=== PATIENT | female | born 1955 | race Caucasian/White ===

== ENCOUNTER 2021-10-07 12:28 | Outpatient (CLI) | payer MEDICARE, SELFPAY ==
--- NOTE | ~2021-10-07 | XR_ITS ---
XR lumbar spine 2-3V DATE: 10/07/2021 13:01 INDICATION: Low back pain TECHNIQUE: AP, lateral, coned lateral lumbosacral views COMPARISON: None FINDINGS: Status post posterior surgical and interbody spinal fusion at L4-5. Pedicle screws and rods appear intact, without evidence of fracture or displacement. Approximately 9 mm grade 1 anterolisthesis at L4-5. Osteopenia. There is mild loss of height of L2 vertebral body with cupping of the superior vertebral endplate, co nsistent with compression fracture of uncertain age. No other fracture is evident. Included lower tho racic and lumbar pedicles appear intact. Moderate degenerative disc disease at L1-2. Mild degenerative disc disease at L2-3, L3-4. L5-S1 inter space is well preserved. The sacroiliac joints are intact. IMPRESSION: Osteopenia L2 compression fracture, uncertain age Status post posterior and interbody spinal fusion at L4-5 9 mm anterolisthesis grade 1 anterolisthesis at L4-5 Multilevel degenerative disc disease, sparing L5-S1 Reviewed, dictated and finalized at location A.
--- NOTE | ~2021-10-07 | XR_ITS ---
XR_CERV2-3V_CR DATE: 10/07/2021 13:01 INDICATION: Neck pain. No known injury. TECHNIQUE: AP, open-mouth, lateral views COMPARISON: None FINDINGS: C1 and C2 are normally aligned and the odontoid process is intact. 1.7 mm anterolisthesis at C3-4. 1.3 mm retrolisthesis at C5-6. 1.3 mm anterolisthesis at C6-7. There is moderate degenerative disc disease of the cervical spine, most prominent at C4-5. No fracture or dislocation, locked facet or prevertebral soft tissue swelling is evident. There is degenerative change at the apophyseal joints throughout the cervical spine and at the uncove rtebral joints in the mid and lower cervical spine. IMPRESSION: Cervical spondylosis Reviewed, dictated and finalized at Location A. Reviewed, dictated and finalized at location A. IMPRESSION: Cervical spondylosis
== END 2021-10-07 12:29 | disposition home or self-care (01) ==
LOC: CHSIMG 12:38
PROVIDERS: PCP Internal Medicine; Visit Provider Internal Medicine
DX: M54.2 Cervicalgia (principal); M54.50 Low back pain, unspecified
CPT/HCPCS: 72040; 72100

== ENCOUNTER 2021-10-25 08:24 | Outpatient (CLI) | payer MEDICARE, SELFPAY ==
--- NOTE | ~2021-10-25 | MR_ITS ---
EXAMINATION: MR hip RT wo con DATE: 10/25/2021 09:53 INDICATION: Burning pain at the right hip and groin. TECHNIQUE: Magnetic resonance imaging (MRI) of the right hip was performed without intravenous contr ast. Sequences included full-field axial PD-weighted FS FSE and T1-weighted FSE, coronal of the pelvi s with PD-weighted FS FSE, small field of view of the right hip with axial PD-weighted FS FSE, sagit romelia PD-weighted FS FSE and coronal PD weighted FS FSE. Additional radial T1-weighted FGR oriented ort hogonal to the acetabular rim were obtained for evaluation of the labrum. COMPARISON: None FINDINGS: Bones/labrum/cartilage: Alignment is normal. No fracture, avascular necrosis or pathologic marrow replacing process. There i s a tear of the anterosuperior to anterior right acetabular labrum. Mild right hip osteoarthritis wit h partial thickness cartilage loss resulting nonuniform joint space narrowing with anterosuperior pre dominance with subarticular edema-like signal change at the anterosuperior right acetabulum. Hypertro phic marginal osteophytes about the right femoral head. Metallic magnetic field artifact associated w ith bilateral vertical lamar and pedicle screw fixation for posterior spinal fusion at L4-L5. Fluid: Symmetric physiologic amount of fluid within both hip joints. Soft tissues: Fluid collection at the left greater trochanter including over the torn lateral facet footplate of th e left gluteus medius tendon with retraction of the myotendinous junction position approximately 4 to 5 cm proximal to the footplate. More posteriorly there is tendinopathy without discrete tear at the superoposterior facet footplate of the tendon. Additional partial tear at the anterior facet footplat e of the left gluteus minimus minimus tendon with asymmetric moderate fatty atrophy of the left glute us minimus muscle belly. There is compensatory asymmetric hypertrophy of the left tensor fascia christiane muscle suggesting the left gluteal tendon tears are chronic. On the right there is tendinopathy witho ut discrete tear at the trochanteric insertions of both the right gluteus medius medius and minimus t endons. The bilateral iliopsoas tendons are normal. Relatively symmetric mild ischial bursitis and mi ld tendinopathy without discrete tears at the bilateral ischial tuberosity origins of the proximal dover mstring tendons. The uterus is not identified and has likely been surgically resected. Limited eval uation of visceral organs of the pelvis is otherwise unremarkable. No pathologically enlarged pelvic /inguinal lymphadenopathy. IMPRESSION: 1. Mild right hip osteoarthritis with anterior to anterosuperior labral tear and high-grade chondral malacia the anterosuperior acetabulum. 2. Tendinopathy at the bilateral gluteus medius medius and minimus tendons with partial tears at the anterior and lateral facet footplates of the left gluteus medius minimus and medius tendons. 3. Relatively symmetric mild bilateral ischial bursitis with mild tendinopathy without discrete tear at the bilateral proximal hamstring tendons. Reviewed, dictated and finalized at location A. IMPRESSION: 1. Mild right hip osteoarthritis with anterior to anterosuperior labral tear an d high-grade chondral malacia the anterosuperior acetabulum. 2. Tendinopathy at the bilateral gluteus medius medius and minimus tendons with partial tears at the anterior and lateral facet footplates of the left gluteus medius minimus and medius tendons. 3. Relatively symmetric mild bilateral ischial bursitis with mild tendinopathy without discrete tear at the bilateral proximal hamstring tendons.
[2021-10-25 08:45] LABS: Add Urine Microscopic? YES; Appearance Urine Clear (Clear); Basophils Absolute Auto 0.05 K/mm3 (0.00-0.10); Basophils Percent Auto 0.9 % (0.0-1.0); Bilirubin Urine Negative (Negative); Blood Urine Negative (Negative); Color Urine Light Yellow (Yellow); Eosinophils Absolute Auto 0.07 K/mm3 (0.02-0.50); Eosinophils Percent Auto 1.2 % (1.0-6.0); Glucose Urine UA Negative (Negative); Hematocrit 40.3 % (35.0-42.0); Hemoglobin 13.3 g/dL (11.7-13.8); Immature Granulocyte Absolute 0.05 K/mm3 (0.00-0.00); Immature Granulocyte Percent A 0.9 % (0.0-0.0); Ketones Urine Negative (Negative); Leukocyte Esterase Ur Trace (Negative); Lymphocytes Absolute Auto 2.33 K/mm3 (1.10-4.50); Lymphocytes Percent Auto 39.7 % (18.0-42.0); Mean Corpuscular Hemoglobin 30.9 pg (27.0-31.0); Mean Corpuscular Volume 93.7 fL (78.0-102.0); Mean Platelet Volume 9.1 fl (9.2-11.8); Monocytes Absolute Auto 0.55 K/mm3 (0.10-0.90); Monocytes Percent Auto 9.4 % (2.0-11.0); Neutrophils Absolute Auto 2.8 K/mm3 (1.7-7.2); Neutrophils Percent Auto 47.9 % (50.0-70.0); Nitrate Urine Negative (Negative); Platelet Count Result 382 K/mm3 (150-420); Protein Urine Negative (Negative); Red Cell Distribution Width 13.8 % (11.6-14.4); Specific Grav Ur 1.015 (1.010-1.020); Urobilinogen Urine 0.2 mg/dL (0.2-1.0); White Blood Count 5.9 K/mm3 (4.8-10.8)
[2021-10-25 08:50] LABS: Squamous Epithelial Cell Urine Few /hpf (Few)
[2021-10-25 08:51] LABS: Bacteria Urine Trace /hpf
[2021-10-25 09:17] LABS: Alanine Aminotransferase 22 U/L (14-59); Albumin Level 3.9 g/dL (3.4-5.0); Alkaline Phosphatase 116 U/L (46-116); Anion Gap 7 mmol/L (8-16); Aspartate Amino Transferase 12 U/L (15-37); Bilirubin,Total 0.3 mg/dL (0.00-1.00); Blood Urea Nitrogen 16 mg/dL (7-18); Calcium 8.9 mg/dL (8.5-10.1); Carbon Dioxide 29 mmol/L (21-32); Chloride 105 mmol/L (98-108); Cholesterol 167 mg/dL (0-200); Estimated Glomerular Filt Rate 50; Glucose 93 mg/dL (70-99); HDL Direct 53 mg/dL (40-60); LDL Cholesterol Calculated 102 mg/dL (<130); Osmolality Calculated 293 mOsm/kg (285-295); Potassium 4.2 mmol/L (3.5-5.1); Sodium 141 mmol/L (136-145); Thyroid Stimulating Hormone 1.42 uIU/mL (0.36-3.74); Total Protein 6.9 g/dL (6.4-8.2); Triglycerides 59 mg/dL (0-150)
[2021-10-28 09:39] LABS: Parathyroid Intact 44 pg/mL (14-64)
[2021-10-29 11:19] LABS: Vitamin D 1,25 (OH)2 Total 45 pg/mL (18-72); Vitamin D2 1,25 (OH)2 <8 pg/mL; Vitamin D3 1,25 (OH)2 45 pg/mL
[2021-10-31 07:30] LABS: Vitamin D 25 Hydroxy 33 ng/mL (30-100)
== END 2021-10-25 08:25 | disposition home or self-care (01) ==
PROVIDERS: PCP Internal Medicine; Visit Provider Internal Medicine
DX: M54.2 Cervicalgia (principal); M54.50 Low back pain, unspecified; E55.9 Vitamin D deficiency, unspecified; Z00.00 Encounter for general adult medical examination without abnormal findings; M25.551 Pain in right hip; Z13.6 Encounter for screening for cardiovascular disorders; R53.83 Other fatigue
CPT/HCPCS: 36415; 73721; 80053; 80061; 81001; 82306; 82652; 83970; 84443; 85025

== ENCOUNTER 2022-02-12 11:58 | Outpatient (CLI) | payer MEDICARE, SELFPAY ==
--- NOTE | ~2022-02-12 | MM_ITS ---
EXAMINATION: MM screening benson BI w dylon HISTORY: Screening TECHNIQUE: Craniocaudal and mediolateral oblique 3-D tomosynthesis images were obtained and synthetic 2-D images were generated. CAD analysis was submitted and interpreted. COMPARISON: No prior mammogram is available for comparison at this institution. BREAST PARENCHYMAL COMPOSITION: Breast composed of scattered areas of fibroglandular density FINDINGS: There is no evidence of suspicious mass, calcification, or architectural distortion to sugg est malignancy in either breast. There has been no suspicious interval change. IMPRESSION: 1. No mammographic evidence of malignancy. 2. Recommend routine screening mammography in one year. BI-RADS Category 1: Negative Reviewed, dictated and finalized at location A.
--- NOTE | ~2022-02-12 | DEXA_ITS ---
Bone Density Report Name: KURTIS VIEIRA Age: 66 Sex: Female Ethnicity: White Date of : 1955 Indication: postmenopausal; screening for osteoporosis; parental hip fracture; height loss; prior fracture; hysterectomy; Referring Provider: ARMEN NORTON Study: Bone densitometry was performed. Exam Date: February 12, 2022 Accession number: [id number] Bone Density: Region BMD T-score Z-score Classification Femoral Neck (Left) 0.610 -2.2 -0.6 Osteopenia Total Hip (Left) 0.839 -0.8 0.4 Normal Femoral Neck (Right) 0.653 -1.8 -0.2 Osteopenia Total Hip (Right) 0.807 -1.1 0.2 Osteopenia Femoral Neck Mean 0.632 -2.0 -0.4 Osteopenia Total Hip Mean 0.823 -1.0 0.3 Normal World Health Organization criteria for BMD impression classify patients as: Normal (T-score at or above -1.0), Osteopenia (T-score between -1.0 and -2.5), or Osteoporosis (T-score at or below -2.5). 10-year Fracture Risk: FRAX not reported because: Prior hip or vertebral fracture Clinical Information Provided by Patient: Have had a previous hip or vertebral fracture Has had a low trauma fracture Parent has had a hip fracture Has used the following medications: Vitamin D, Calcium Has the following medical conditions: Hysterectomy Patient maximum height was 66 Menopause Age: 37 No regular weight bearing exercise Drinks caffeinated beverages Onset of menses at age 9 Number of children 3 Impression: The patient has low bone mass, based on the Left Femoral Neck T-score. The patient has risk factors, including: parental hip fracture, previous fracture. Discussion: INCREASED RISK OF FRACTURE DUE TO HISTORY OF FRACTURE. The patient's previous fracture puts the patient at high risk of a future fracture. In untreated patients, the risk of osteoporotic fracture increases approximately two-fold for each 1.0 SD decrease in T-score. Low bone density is not the only risk factor for fracture; also consider factors such as patient's age, frailty or poor health, risk of falling, risk of injury, previous osteoporotic fracture, family history of osteoporosis, cigarette smoking, low body weight, etc. Not everyone with a low trauma fracture has osteoporosis; osteomalacia and other metabolic bone disorders should also be considered. Patients who have osteoporosis should be evaluated for specific diseases and conditions (secondary causes) that may cause or contribute to bone loss and fracture risk. National Osteoporosis Foundation (NOF) recommends pharmacologic intervention for patients with a prior hip or vertebral fracture regardless of BMD T-score. The patient should follow a healthful lifestyle (good nutrition with adequate calcium and vitamin D, and appropriate weight-bearing exercise). Follow-Up: Consider a repeat BMD and Vertebral Fracture Assessme
== END 2022-02-12 11:59 | disposition home or self-care (01) ==
PROVIDERS: PCP Internal Medicine; Visit Provider Internal Medicine
DX: M81.0 Age-related osteoporosis without current pathological fracture (principal); Z12.31 Encounter for screening mammogram for malignant neoplasm of breast
CPT/HCPCS: 77063; 77067; 77080

== ENCOUNTER 2022-06-12 12:06 | Outpatient (CLI) | payer MEDICARE, SELFPAY ==
--- NOTE | 2022-06-12 13:16 | ECG_ITS ---
Measurements Intervals [place] Rate: 81 P: 50 SD: 125 QRS: 7 QRSD: 72 T: 54 QT: 375 QTc: 438 Interpretive Statements SINUS RHYTHM WITH OCCASIONAL VENTRICULAR PREMATURE COMPLEXES LOW QRS VOLTAGE IN PRECORDIAL LEADS [QRS DEFLECTION < 1.0 mV IN CHEST LEADS] NO PREVIOUS ECG AVAILABLE FOR COMPARISON Electronically Signed On 06-13-2022 8:15:36 GAMMA OPERATOR by Effie Rogers M.D.
[2022-06-12 13:51] LABS: Basophils Absolute Auto 0.1 K/mm3 (0.0-0.1); Eosinophils Percent Auto 0.6 % (0-4.4); Hematocrit 40.1 % (37.0-47.0); Hemoglobin 13.3 g/dL (12.0-15.0); Immature Granulocyte Absolute 0.01 K/mm3 (0.00-0.031); Immature Granulocyte Percent A 0.2 % (0-0.5); Lymphocytes Absolute Auto 1.85 K/mm3 (0.9-3.2); Lymphocytes Percent Auto 36.8 % (18.3-44.2); Mean Corpuscular HGB Conc 33.2 g/dl (32-36); Mean Corpuscular Hemoglobin 31.8 pg (26-34); Mean Corpuscular Volume 95.9 fl (80-100); Mean Platelet Volume 9.5 fl (7.4-10.4); Monocytes Absolute Auto 0.4 K/mm3 (0.1-0.6); Monocytes Percent Auto 7.6 % (2.6-8.5); Neutrophils Absolute Auto 2.7 K/mm3 (1.3-6.7); Neutrophils Percent Auto 53.8 % (45.5-73.1); Platelet Count Result 312 k/mm3 (150-375); Red Blood Count 4.18 M/mm3 (4.2-5.4)
[2022-06-12 14:02] LABS: Hemoglobin A1C 5.1 % (<5.7)
[2022-06-12 14:08] LABS: Albumin Level 4.6 g/dL (3.5-5.1); Anion Gap 6 mmol/L (8-16); Blood Urea Nitrogen 23 mg/dL (7-17); Carbon Dioxide 30 mmol/L (22-30); Chloride 103 mmol/L (98-107); Estimated Glomerular Filt Rate > 60; Glucose 90 mg/dL (65-110); Potassium 4.3 mmol/L (3.4-5.0); Sodium 139 mmol/L (137-145)
[2022-06-12 15:43] LABS: Urine Cotinine NEGATIVE
== END 2022-06-12 12:07 | disposition home or self-care (01) ==
LOC: ANHSURGERY 12:10
PROVIDERS: PCP Internal Medicine; Visit Provider Orthopaedic Surgery
DX: M16.11 Unilateral primary osteoarthritis, right hip (principal); Z01.818 Encounter for other preprocedural examination
CPT/HCPCS: 80048; 80307; 82040; 83036; 85025; 87081; 87147; 87181; 87186; 93005

== ENCOUNTER 2022-06-18 13:40 | Outpatient (CLI) | payer MEDICARE, SELFPAY ==
[2022-06-18 14:00] LABS: Hematocrit 37.9 % (37.0-47.0); Hemoglobin 12.8 g/dL (12.0-15.0); Mean Corpuscular HGB Conc 33.8 g/dl (32-36); Mean Corpuscular Hemoglobin 32.2 pg (26-34); Mean Corpuscular Volume 95.2 fl (80-100); Mean Platelet Volume 9.6 fl (7.4-10.4); Platelet Count Result 287 k/mm3 (150-375); Red Blood Count 3.98 M/mm3 (4.2-5.4); White Blood Count 4.6 K/mm3 (4.5-10.0)
[2022-06-18 16:38] LABS: Prothrombin Time 12.5 Seconds (11.1-14.7)
[2022-06-18 16:39] LABS: Partial Thromboplastin Time 30.8 SECONDS (22.3-36.8)
== END 2022-06-18 13:41 | disposition home or self-care (01) ==
LOC: ANHLAB 13:41
PROVIDERS: PCP Internal Medicine; Visit Provider Internal Medicine Hematology & Oncology
DX: D69.9 Hemorrhagic condition, unspecified (principal)
CPT/HCPCS: 36415; 85027; 85240; 85245; 85246; 85247; 85610; 85730

== ENCOUNTER 2022-06-29 01:06 | Day surgery (SDC) | payer MEDICARE, SELFPAY ==
--- NOTE | 2022-06-12 11:37 | PC.NURSE ---
PRE-OP INSTRUCTIONS, PLEASE READ CAREFULLY Report to the Outpatient Waiting Room, entrance under the green pavilion located off [address], at time _0600_ on date _06/29/22_. Planned Procedure Time: _0730_. PACK A SMALL OVERNIGHT BAG AND LEAVE IN THE CAR ALONG WITH YOUR WALKER Time changes happen often and if your time is changed the preop area will call you the afternoon before. - You and your visitor will be asked to self-screen and do not enter if you have any COVID symptoms. - Only one visitor is requested with a max of two and NO children visitors are allowed at this time. - The patient visitor may be requested to leave or wait in car when not with patient due to distancing restrictions. - A mask is optional within the hospital at this time. -VISITING HOURS 8AM-8PM Patients may have clear liquids (water, carbonated beverages, clear teas, apple juice) until 3 hours prior to surgery (0430 AM) with a maximum of 20 ounces. - No food from midnight until time of surgery Take the following medications with a SIP of water the morning of surgery: _BACLOFEN, LEVOTHYROXINE, & FLEXERIL, TYLENOL, TRAMADOL IF NEEDED_ DO NOT STOP ANY OF YOUR OTHER PRESCRIPTION MEDICATIONS PRIOR TO SURGERY ?EXCEPT THE FOLLOWING Medications to discontinue per DR. NORTON - _DICLOFENAC 7 DAYS PRIOR TO SURGERY, Date to take last dose 06/21/22_ Medications to discontinue per ANESTHESIA -_BIOTIN 3 DAYS PRIOR TO SURGERY, Date to take last dose 06/25/22_ Please no make-up, nail italian, hairspray, perfume, deodorant, or body powder the day of surgery. No jewelry (including any body piercings) or valuables the day of surgery, leave them at home. Please take a shower or bath the night before, or the morning of, surgery with an antibacterial soap. Wear comfortable, loose fitting clothing. - Jewelry must be removed prior to entering the operating room. Rings and piercings that are not removed may be cut off. - The hospital will not accept responsibility for valuables. - Please leave all valuables, including medications, at home the day of surgery. If you are going home after surgery, a licensed local truck driver must drive you home. - NO public transportation without another adult if you receive anesthesia. - We recommend that an adult stay with you for 24 hours following discharge. - We also recommend that you do not drive, make important decision, drink alcoholic beverages, or take any drugs that were not prescribed by your health care provider for at least 24 hours after your discharge time. Follow any additional instructions given to you from your surgeon. If you or anyone in your household have experienced Covid symptoms in the past week, please notify your surgeon or the nurse liaison at the phone number below for possible testing. Instructions given to _PATIENT_and asked if any additional questions and then verbalized understanding. Patient advised to call surgeon office or pre surgery nurse liaison [phone] if any additional questions.
[2022-06-12 12:42] VITALS: BP 116/68; PULSE 88; RESP 18; TEMP 37.2; O2SAT 100; BMI 33.3
--- NOTE | 2022-06-26 12:28 | PM.IMHP ---
H&P: HPI History of Present Illness Date/Time: 06/26/22 12:28 Chief Complaint: DJD right hip Narrative: 67-year-old female patient of Dr. Pompa who presents today for a right anterior total hip arthroplasty. Patient has had been having progressively worsening pain in the right hip particularly in the medial groin anterior lateral hip. She has pain on a daily basis. It is limiting her activities at times. She has been on diclofenac for the last 6-8 weeks without significant improvement of her symptoms. Patient has moderately severe osteoarthritis of the right hip. Patient feels that she is having significant pain on a daily basis that is causing her debilitation and feels she is ready to proceed with total hip arthroplasty at this point rather continue nonsurgical treatment. Review of Systems Review of Systems: All systems reviewed & are unremarkable except as noted in HPI and below PMFSH Social History Social History Smoking status: Never smoker Second hand tobacco smoke exposure: No Additional smoking assessment comments: PT DENIES ALL FORMS OF TOBACCO USE Alcohol intake: current Alcohol use details: STATES MAYBE 1 DRINK EVERY OTHER WEEK Substance use: never Substance use type: does not use Living arrangements: with family Additional living arrangements comments: LIVES WITH SON CIARA Spiritual care concerns: No Meds Home Medications and Allergies Home Medications Medication Instructions Recorded Confirmed Type Calcium/Vit D3 1 tab-cap QAM 06/12/22 History acetaminophen 500 mg tablet 500 mg PO Q6H PRN Pain 06/12/22 06/12/22 History baclofen 10 mg tablet 10 mg BID 06/12/22 06/12/22 History biotin 5,000 mcg disintegrating 5,000 mcg PO DAILY 06/12/22 06/12/22 History tablet cyclobenzaprine 10 mg tablet 10 mg PO TID PRN Muscle Pain 06/12/22 06/12/22 History diclofenac sodium 75 mg 75 mg PO BID 06/12/22 06/12/22 History tablet,delayed release duloxetine 60 mg capsule,delayed 60 mg PO HS 06/12/22 06/12/22 History release furosemide 40 mg tablet 40 mg QAM 06/12/22 06/12/22 History levothyroxine 75 mcg tablet 75 mcg QAM 06/12/22 06/12/22 History linaclotide 145 mcg capsule 145 mcg EVERY OTHER DAY 06/12/22 06/12/22 History (Linzess) lisinopril 10 mg tablet 10 mg HS 06/12/22 06/12/22 History magnesium 200 mg tablet 400 mg PO DAILY 06/12/22 06/12/22 History misoprostol 200 mcg tablet 200 mcg BID 06/12/22 06/12/22 History omeprazole 20 mg capsule,delayed 20 mg HS 06/12/22 06/12/22 History release tramadol 50 mg tablet 100 mg BID PRN Pain 06/12/22 06/12/22 History Allergies Allergy/AdvReac Type Severity Reaction Status Date / Time iohexol AdvReac LIGHTHEADDED, Verified 06/12/22 12:24 [From contrast - CT, X-RAY] RAPID HEART RATE paroxetine [From Paxil] AdvReac Rash Verified 06/12/22 12:24 vancomycin AdvReac RED MAN Verified 06/12/22 12:24 SYNDROME Exam Narrative: 67-year-old female alert pleasant. She is 5 ft 4 and 198 lb her BMI is 34. She walks with a mild limp due to pain in the right hip. She does report chronic numbness and tingling in both feet but has normal light touch sensation. She has normal muscle strength in all groups in the right lower extremity. She has normal abduction strength. She has moderate tenderness over the greater trochanter to palpation. Stinchfield maneuver causes her severe medial groin pain. Range of motion of the right hip is from 0-120 degrees, internal rotation to 0 which causes severe medial groin pain external rotation to 30 which causes her moderate groin pain. Skin around the hip and groin crease all look normal. 2+ dorsalis pedis pulse in her foot. Resp: Auscultation: clear to auscultation bilaterally Cardio: Rate: regular rate Rhythm: regular rhythm Assessment and Plan Assessment and plan (1) Hip arthritis: Code(s): M16.10 - Unilateral primary osteoarth
[2022-06-29] VITALS (14 sets, daily range): BP systolic 95–129; BP diastolic 37–74; PULSE 77–99; RESP 12–20; TEMP 36.4–37.9; O2SAT 95–100
--- NOTE | ~2022-06-29 | XR_ITS ---
EXAMINATION: XR hip RT 1V w AP pelvis, XR surgery orthopedic DATE: 06/29/2022 11:43 INDICATION: Right total hip arthroplasty TECHNIQUE: 3 views of the right hip including intraoperative AP view and 2 views of the right hip pos toperatively. 64 seconds of fluoroscopy. FINDINGS: There is a right total hip arthroplasty in expected position. Subcutaneous gas with soft t issue swelling are consistent with recent surgery. IMPRESSION: 1. Recent right total hip arthroplasty. Reviewed, dictated and finalized at location B. VISUALIZATION DEVELOPER IMPRESSION: 1. Recent right total hip arthroplasty.
[2022-06-29] MEDS: ACETAMINOPHEN 500 MG TABLET 1000 MG PO ×2 (06:34→18:10)
[2022-06-29] MEDS: diphenhydrAMINE HCl INJ 50 MG/ML VIAL IV PUSH ×2 (06:45→18:10)
--- NOTE | 2022-06-29 06:50 | WPDHPUPDATE1 ---
History and Physical Update Update Date/Time: 06/29/22 06:50 History and Physical has been reviewed, including an updated exam of the patient. There are NO changes in the patient's condition. Risks, benefits, and alternatives have been discussed and questions answered. Patient agrees to proceed with procedure. Pt saw Dr Javed and factor 8 def has been ruled out and patient is OK to use eliquis post op.
[2022-06-29] MEDS: TRANEXAMIC ACID 1,000MG/ISO100 1,000 MG/100 ML BAG 200 MG IVPB (06:56)
[2022-06-29] MEDS: LACTATED RINGERS 1,000 ML 30 ML IV CONT ×2 (07:00→11:42)
--- NOTE | 2022-06-29 07:19 | WPDANESEPPF ---
Anes - Initial Pre Proc Eval Procedure: Operation Date: 06/29/22 07:30 Proposed Procedures p Right Total Hip Arthroplasty, Anterior Approach - Zach Pope MD Date/Time: 06/29/22 07:19 Surgeon: Zach Pope MD Pre Op Diagnosis: O A Right Hip Patient Data Age: 67 Gender: F Height: 1.63 m Weight: 87.9 kg Last Vital Signs Temp 37.2 C 06/12/22 12:42 Pulse 88 06/12/22 12:42 Resp 18 06/12/22 12:42 BP 116/68 06/12/22 12:42 Pulse Ox 100 06/12/22 12:42 O2 Del Method Room Air 06/12/22 12:42 Allergies Allergy/AdvReac Type Severity Reaction Status Date / Time iohexol AdvReac LIGHTHEADDED, Verified 06/12/22 12:24 [From contrast - CT, X-RAY] RAPID HEART RATE paroxetine [From Paxil] AdvReac Rash Verified 06/12/22 12:24 vancomycin AdvReac RED MAN Verified 06/12/22 12:24 SYNDROME Home Medications Medication Instructions Recorded Confirmed Type Calcium/Vit D3 1 tab-cap QAM 06/12/22 History acetaminophen 500 mg tablet 500 mg PO Q6H PRN Pain 06/12/22 06/12/22 History baclofen 10 mg tablet 10 mg BID 06/12/22 06/12/22 History biotin 5,000 mcg disintegrating 5,000 mcg PO DAILY 06/12/22 06/12/22 History tablet cyclobenzaprine 10 mg tablet 10 mg PO TID PRN Muscle Pain 06/12/22 06/12/22 History diclofenac sodium 75 mg 75 mg PO BID 06/12/22 06/12/22 History tablet,delayed release duloxetine 60 mg capsule,delayed 60 mg PO HS 06/12/22 06/12/22 History release furosemide 40 mg tablet 40 mg QAM 06/12/22 06/12/22 History levothyroxine 75 mcg tablet 75 mcg QAM 06/12/22 06/12/22 History linaclotide 145 mcg capsule 145 mcg EVERY OTHER DAY 06/12/22 06/12/22 History (Linzess) lisinopril 10 mg tablet 10 mg HS 06/12/22 06/12/22 History magnesium 200 mg tablet 400 mg PO DAILY 06/12/22 06/12/22 History misoprostol 200 mcg tablet 200 mcg BID 06/12/22 06/12/22 History omeprazole 20 mg capsule,delayed 20 mg HS 06/12/22 06/12/22 History release tramadol 50 mg tablet 100 mg BID PRN Pain 06/12/22 06/12/22 History Patient hx anesthesia problems: none Family hx anesthesia problems: none Results Review: All pre-operative results and documents have been reviewed as part of the pre-operative evaluation. [facility] Social History Social History Smoking status: Never smoker Second hand tobacco smoke exposure: No Additional smoking assessment comments: PT DENIES ALL FORMS OF TOBACCO USE Alcohol intake: current Alcohol use details: STATES MAYBE 1 DRINK EVERY OTHER WEEK Substance use: never Substance use type: does not use Living arrangements: with family Additional living arrangements comments: LIVES WITH SON CIARA Spiritual care concerns: No Anes - Eval Final PreProcedure Day of Procedure 06/29/22 07:19 Patient weight: obese Heart: regular rate and rhythm Lungs: decreased breath sounds Neurological: alert and oriented Last oral intake: >/= 8 hours ASA classification: III Emergent: no Anesthetic plan: proceed Anesthesia type and monitoring: general ETT and standard monitoring Results Review: All pre-operative results and documents have been reviewed as part of the pre-operative evaluation. Informed Consent: The patient's anesthetic plan and its attendant risks and benefits were discussed with the patient/family/POA. Questions were solicited and answers provided to the satisfaction of the patient/family/POA.
[2022-06-29] MEDS: ceFAZolin 2 GM/D5W 50 ML 2 GM/50 ML BAG IVPB (07:48)
[2022-06-29] MEDS: ceFAZolin SODIUM 1 GM VIAL 3 GM (08:28)
[2022-06-29] MEDS: TRANEXAMIC ACID 1,000 MG/10 ML AMPUL 1000 MG IV PUSH (11:07)
[2022-06-29] MEDS: ceFAZolin SODIUM 1 GM VIAL 2 GM IV PUSH (11:08)
--- NOTE | 2022-06-29 11:47 | W.PM.PROC2 ---
Procedure Note - Detailed Date of Procedure 06/29/22 Pre-op Diagnosis O A Right Hip Post-op Diagnosis Same Procedure Performed Right total hip arthroplasty direct anterior approach Surgeon Zach Pope MD Hard Candy Spinner Joseluis Anesthesia General Description of Procedure patient was brought to the operating general anesthesia was administered. She received 2 g Ancef weight based vancomycin (after Benadryl in the preop holding area and she did not have a red man syndrome or other blood pressure issues ) and 1 g of tranexamic acid. The boots were applied after padding applied the feet and she was transferred the was off OSI [place] table and the right hip prepped draped usual fashion. A 10 cm longitudinal incision was made starting 3 cm lateral to the ASIS. Fascia of the tensor fascia christiane was exposed and longitudinally incised. Interval between tensor christiane and rectus femoris was developed and the crossing branches of ascending lateral femoral circumflex vessels were ligated with suture divided. retractor placed anterior to the capsule the hip abducted internally rotated and the gluteus minimus elevated off the lateral capsule. Inverted T capsulotomy was performed. Femoral neck osteotomy made according to preoperative templating. Femoral head was removed without difficulty. The head measured 47 mm in diameter. Acetabulum was exposed labrum excised residual articular cartilage curetted. the femur was externally rotated extended and interval between conjoined tendon and piriformis incised which allowed the piriformis to flipped and slight recession of the conjoined tendon. With the leg back in the horizontal position the acetabulum was exposed. This was prepared under fluoroscopic guidance medialized into the medial wall and reaming up to a 47 Reamer. Forty-seven trial had difficulty seating due to intravenous prominence surrounding the acetabular rim and we lightly reamed with the 48 Reamer and the 48 trial had a nice tight fit and complete contact with reamed bony surface circumferentially. The 48 pinnacle cup was chosen placed at 40? of abduction and anteversion matching the anatomy flush with the anterior rim a few mm prominent posteriorly. An excellent Press-Fit was achieved we placed a screw into the ilium for additional fixation. The removed bone was strong. The cancellous bone inside the acetabulum was fairly soft. The 32 inner diameter liner was seated without difficulty. Femur was prepared using external rotation extension the table hook for additional elevation and we broached up to a size 5 which still had a little bit of torsion is play and the size 6 was solid to torsional testing. We trialed with the high offset +1 and this increased her offset more than her preoperative offset and I did not think this was optimal. On trialing with the +5 neck and a standard offset this gave for appropriate offset for her but she was a little bit tight and under fluoro we could see that she was approximately 4 in longer than our preoperative plan to length in her about 3 mm. We countersunk the 6 broach 4 more mm and on read trialing leg lengths looked equal according to the lesser trochanters and a line drawn across the ischial tuberosities which was our preoperative plan. Torsional stability of the broach was confirmed. The neck was calcar planed we placed the 6 standard offset Actis stem which obtained excellent tight fit and seated fully and we placed the 5 trial and soft tissue tension was very appropriate with an easy shock but not unstable. Five ceramic 32 head was impacted on the clean and dried trunnion hip reduced stability reconfirmed. Local anesthetic cocktail was injected in the soft tissues capsule reapproximated superiorly with 2. Vicryl. The fascia was closed with running 1. Vicryl drain deep in the subcu layer skin closed with 2 subcu canal is Vicryl in a. At time of wound closure the wound was quite dry. She did exhibit more oozing th
--- NOTE | 2022-06-29 11:54 | PM.OP ---
Procedure Note - Brief Procedure Note - Brief Date of procedure: 06/29/22 <EVELYN Bowen - Last Filed: 06/29/22 11:55> 06/29/22 <Zach Pope MD - Last Filed: 06/29/22 12:47> Pre-op diagnosis: O A Right Hip <EVELYN Bowen - Last Filed: 06/29/22 11:55> Right hip DJD <EVELYN Bowen - Last Filed: 06/29/22 11:55> Procedure performed: right anterior total hip arthroplasty <EVELYN Bowen - Last Filed: 06/29/22 11:55> Description of procedure: 67-year-old female who underwent right anterior total hip arthroplasty on 06/29. I was involved with the procedure including positioning the patient on the OR table. Persisting to time surgery as well as wound closure and assisted getting patient to recovery. Total time spent was 4 hours <EVELYN Bowen - Last Filed: 06/29/22 11:55> Surgeon: EVELYN Bowen <EVELYN Bowen - Last Filed: 06/29/22 11:55>
[2022-06-29] MEDS: fentaNYL CITRATE INJ (*CRX) 100 MCG/2 ML VIAL 25 MCG IV PUSH ×7 (12:00→12:25)
[2022-06-29] MEDS: HYDROmorphone HCL INJ (*CRX) 1 MG/ML SYR IV PUSH ×2 (12:45→13:05)
[2022-06-29] MEDS: PROPARACAINE HCL 0.5% 15 ML OPHTH SOLN 1 DROP EACH EYE (12:57)
[2022-06-29] MEDS: DICLOFENAC SODIUM 0.1% OPHTH SOLN 2.5 ML BOTTLE 1 DROP EACH EYE ×2 (12:57→20:55)
[2022-06-29] MEDS: ARTIFICIAL TEARS OPHTH SOLN 15 ML BOTTLE 1 DROP EACH EYE (12:58)
[2022-06-29] MEDS: KETOROLAC 15 MG/ML VIAL (*BKC) IV PUSH (13:30)
[2022-06-29 13:45] LABS: Hematocrit 35.3 % (37.0-47.0); Hemoglobin 11.8 g/dL (12.0-15.0)
--- NOTE | 2022-06-29 14:28 | SUR.PHASEI ---
Left message for Dr. Pope regarding the results of patient's STAT hgb/hct.
--- NOTE | 2022-06-29 15:41 | PM.IMCN ---
Assessment and Plan Assessment and plan (1) Hip arthritis: Code(s): M16.10 - Unilateral primary osteoarthritis, unspecified hip Status: Acute Assessment and Plan: Per orthopedic surgery, status post hip replacement, doing well (2) IBS (irritable bowel syndrome): Code(s): K58.9 - Irritable bowel syndrome without diarrhea Status: Acute Assessment and Plan: Continue home Linzess, controlled (3) GERD (gastroesophageal reflux disease): Code(s): K21.9 - Gastro-esophageal reflux disease without esophagitis Status: Acute Assessment and Plan: Continue home PPI, monitor magnesium (4) Essential hypertension: Code(s): I10 - Essential (primary) hypertension Status: Acute Assessment and Plan: Stable, continue home lisinopril and Lasix, monitor (5) Hypothyroidism: Code(s): E03.9 - Hypothyroidism, unspecified Status: Acute Assessment and Plan: TSH stable when last checked in October, follow-up outpatient, asymptomatic, continue levothyroxine Plan DVT prophylaxis with Xarelto GI prophylaxis with PPI Code status full code [facility] Data of Consult Consult date: 06/30/22 Requesting Physician: Zach Pope MD Primary Care Provider: Wayne Pompa MD Consult Narrative Narrative: Jaye Raymond is a 67 year old female with past medical history significant for hypothyroidism, hypertension, GERD, IBS presenting for total hip replacement. Hospital medicine is consulted for medical management. Home medications were restarted. Patient did well postoperatively. Hemoglobin remained stable. She was placed on Xarelto for DVT prophylaxis had discharge by Orthopedic surgery. After surgery, she mobilized quite quickly. She is able to take good p.o. and had a bowel movement. Urine output was appropriate. She was discharged in stable condition by Orthopedic surgery. Review of Systems Review of Systems: 12 point review of systems was assessed and was negative except as noted in the [facility] Past Medical History Medical History Essential hypertension GERD (gastroesophageal reflux disease) Hypothyroidism IBS (irritable bowel syndrome) Social History Social History Smoking status: Never smoker Second hand tobacco smoke exposure: No Additional smoking assessment comments: PT DENIES ALL FORMS OF TOBACCO USE Alcohol intake: current Alcohol use details: STATES MAYBE 1 DRINK EVERY OTHER WEEK Substance use: never Substance use type: does not use Lack of Transportation: No Lack of Food: Never True Current Housing: I Have Housing Concerned About Future Housing: No Difficulty Paying Gas/Electric Bills: No Difficulty Paying for Meds: No Currently Unemployed: No Education: Decline to Answer Difficulty w/ Childcare or Family Care: No Living arrangements: with family Additional living arrangements comments: LIVES WITH SON CIARA Spiritual care concerns: No Meds Home Medications and Allergies Home Medications Medication Instructions Recorded Confirmed Type Calcium/Vit D3 1 tab-cap [facility] 06/12/22 06/29/22 History baclofen 10 mg tablet 10 mg BID 06/12/22 06/29/22 History biotin 5,000 mcg disintegrating 5,000 mcg PO DAILY 06/12/22 06/29/22 History tablet duloxetine 60 mg capsule,delayed 60 mg PO HS 06/12/22 06/29/22 History release furosemide 40 mg tablet 40 mg [facility] 06/12/22 06/29/22 History levothyroxine 75 mcg tablet 75 mcg [facility] 06/12/22 06/29/22 History linaclotide 145 mcg capsule 145 mcg EVERY OTHER DAY 06/12/22 06/29/22 History (Linzess) lisinopril 10 mg tablet 10 mg HS 06/12/22 06/29/22 History magnesium 200 mg tablet 400 mg PO DAILY 06/12/22 06/29/22 History omeprazole 20 mg capsule,delayed 20 mg HS 06/12/22 06/29/22 History release acetaminophen 500 mg tablet 1,
--- NOTE | 2022-06-29 15:57 | PC.NURSE ---
This patient, Jaye Raymond, was admitted to Medical Room 344-01. Patient/family oriented to hospital policies and general routines including ID bracelet, bed and alarms, visiting hours, pain management, procedures, bathroom and other care routines, personal items, smoking policy, room service/diet, and visiting hours. Information on how to activate the Rapid Response Team has been discussed. Patient/Family are encouraged to report perceived risks to care and to ask questions if they do not understand what they are told or what they should do.
[2022-06-29] MEDS: SODIUM CHLORIDE 0.9% IV 1,000 ML 125 ML IV CONT (16:04)
[2022-06-29] MEDS: oxyCODONE HCL (*CRX) 5 MG TAB IR PO ×3 (16:07→23:24)
[2022-06-29] MEDS: SENNA/DOCUSATE SODIUM TABLET 2 TAB PO (16:08)
[2022-06-29 19:40] LABS: Basophils Percent Auto 0.1 % (0.2-1.2); Hematocrit 34.8 % (37.0-47.0); Hemoglobin 11.4 g/dL (12.0-15.0); Immature Granulocyte Absolute 0.05 K/mm3 (0.00-0.031); Immature Granulocyte Percent A 0.4 % (0-0.5); Lymphocytes Absolute Auto 0.58 K/mm3 (0.9-3.2); Lymphocytes Percent Auto 4.9 % (18.3-44.2); Mean Corpuscular HGB Conc 32.8 g/dl (32-36); Mean Corpuscular Volume 97.8 fl (80-100); Monocytes Absolute Auto 0.5 K/mm3 (0.1-0.6); Monocytes Percent Auto 4.2 % (2.6-8.5); Neutrophils Absolute Auto 10.8 K/mm3 (1.3-6.7); Neutrophils Percent Auto 90.4 % (45.5-73.1); Platelet Count Result 236 k/mm3 (150-375); Red Blood Count 3.56 M/mm3 (4.2-5.4); White Blood Count 11.9 K/mm3 (4.5-10.0)
[2022-06-29 20:15] LABS: Alanine Aminotransferase 20 U/L (6-35); Albumin Level 3.8 g/dL (3.5-5.1); Alkaline Phosphatase 70 U/L (38-126); Anion Gap 5 mmol/L (8-16); Aspartate Amino Transferase 27 U/L (14-36); Bilirubin,Total 0.4 mg/dL (0.2-1.3); Blood Urea Nitrogen 16 mg/dL (7-17); Calcium 8.5 mg/dL (8.4-10.2); Carbon Dioxide 25 mmol/L (22-30); Chloride 101 mmol/L (98-107); Estimated CRCL calculation 65 ml/min; Estimated Glomerular Filt Rate > 60; Glucose 174 mg/dL (65-110); Potassium 4.6 mmol/L (3.4-5.0); Sodium 131 mmol/L (137-145)
[2022-06-29] MEDS: FAMOTIDINE 20 MG TABLET PO (20:54)
[2022-06-29] MEDS: lisinopriL 10 MG TABLET BY MOUTH (20:54)
[2022-06-29] MEDS: DULoxetine HCL 60 MG CAPSULE.DR PO (20:55)
[2022-06-30] MEDS: ACETAMINOPHEN 500 MG TABLET 1000 MG PO ×2 (00:20→05:28)
[2022-06-30 03:28] VITALS: BP 104/47; PULSE 93; RESP 16; TEMP 36.3; O2SAT 100
[2022-06-30] MEDS: DICLOFENAC SODIUM 0.1% OPHTH SOLN 2.5 ML BOTTLE 1 DROP EACH EYE (05:28)
[2022-06-30] MEDS: diphenhydrAMINE HCl INJ 50 MG/ML VIAL IV PUSH (05:28)
[2022-06-30] MEDS: LEVOTHYROXINE SODIUM 75 MCG TABLET BY MOUTH (05:28)
[2022-06-30] MEDS: oxyCODONE HCL (*CRX) 5 MG TAB IR PO ×2 (05:28→10:09)
[2022-06-30 05:41] LABS: Basophils Percent Auto 0.1 % (0.2-1.2); Hematocrit 30.4 % (37.0-47.0); Immature Granulocyte Absolute 0.03 K/mm3 (0.00-0.031); Immature Granulocyte Percent A 0.3 % (0-0.5); Lymphocytes Absolute Auto 1.27 K/mm3 (0.9-3.2); Lymphocytes Percent Auto 13.6 % (18.3-44.2); Mean Corpuscular HGB Conc 32.9 g/dl (32-36); Mean Corpuscular Hemoglobin 31.1 pg (26-34); Mean Corpuscular Volume 94.4 fl (80-100); Mean Platelet Volume 9.9 fl (7.4-10.4); Monocytes Absolute Auto 0.9 K/mm3 (0.1-0.6); Monocytes Percent Auto 9.2 % (2.6-8.5); Neutrophils Absolute Auto 7.2 K/mm3 (1.3-6.7); Neutrophils Percent Auto 76.8 % (45.5-73.1); Platelet Count Result 239 k/mm3 (150-375); Red Blood Count 3.22 M/mm3 (4.2-5.4); Red Cell Distribution Width 14.2 % (11.5-14.5); White Blood Count 9.4 K/mm3 (4.5-10.0)
[2022-06-30 06:00] LABS: Alanine Aminotransferase 18 U/L (6-35); Albumin Level 3.4 g/dL (3.5-5.1); Alkaline Phosphatase 69 U/L (38-126); Anion Gap 3 mmol/L (8-16); Aspartate Amino Transferase 24 U/L (14-36); Bilirubin,Total 0.5 mg/dL (0.2-1.3); Blood Urea Nitrogen 14 mg/dL (7-17); Calcium 8.1 mg/dL (8.4-10.2); Carbon Dioxide 26 mmol/L (22-30); Chloride 103 mmol/L (98-107); Estimated CRCL calculation 73 ml/min; Estimated Glomerular Filt Rate > 60; Glucose 131 mg/dL (65-110); Potassium 4.2 mmol/L (3.4-5.0); Sodium 132 mmol/L (137-145)
--- NOTE | 2022-06-30 06:23 | PM.PNORT ---
Subjective Subjective Date/Time Seen: 06/30/22 06:23 Postop day 1 patient is alert. Afebrile vital signs are stable. morning labs are noted, hemoglobin 10.0. Patient was up walking yesterday with therapy and was very comfortable. She is having a little bit more soreness this morning, soft tissue block has worn off. Overall pain is very tolerable. Dressing is dry. Neurovascularly she is intact. Drain will be removed this morning. We will plan have the patient work with therapy today and she will either be discharged to home later this morning or early this afternoon. Objective Data Vital Signs Vital Signs: Vital Signs - 24 hr 06/29/22 07:30 06/29/22 11:42 06/29/22 11:55 Temperature 36.8 C 37.9 C H Pulse Rate 82 78 88 Respiratory Rate 16 15 16 Blood Pressure 118/71 95/46 L 127/67 Pulse Oximetry 97 100 100 Oxygen Delivery Room Air Simple Face Mask Simple Face Mask Oxygen Flow Rate 6 6 06/29/22 12:10 06/29/22 12:25 06/29/22 12:41 Temperature Pulse Rate 81 78 77 Respiratory Rate 12 12 12 Blood Pressure 106/65 99/37 L 121/55 L Pulse Oximetry 100 99 95 Oxygen Delivery Simple Face Mask Room Air Room Air Oxygen Flow Rate 6 06/29/22 12:55 06/29/22 13:10 06/29/22 13:25 Temperature Pulse Rate 83 87 83 Respiratory Rate 18 12 14 Blood Pressure 104/58 L 101/58 L 106/61 Pulse Oximetry 100 100 99 Oxygen Delivery Room Air Nasal Cannula Nasal Cannula Oxygen Flow Rate 2 2 06/29/22 12:15 06/29/22 14:42 06/29/22 14:05 Temperature 36.4 C L Pulse Rate 87 Respiratory Rate 20 Blood Pressure 125/71 Pulse Oximetry 100 Oxygen Delivery Room Air Room Air Oxygen Flow Rate 06/29/22 14:35 06/29/22 15:05 06/29/22 19:28 Temperature 36.4 C 36.7 C 36.5 C Pulse Rate 91 99 94 Respiratory Rate 20 18 16 Blood Pressure 119/60 129/74 109/53 L Pulse Oximetry 100 100 97 Oxygen Delivery Oxygen Flow Rate 06/29/22 20:00 06/29/22 23:14 06/30/22 03:28 Temperature 36.7 C 36.3 C L Pulse Rate 84 93 Respiratory Rate 16 16 Blood Pressure 99/48 L 104/47 L Pulse Oximetry 98 100 Oxygen Delivery Room Air Oxygen Flow Rate Intake/Output Intake/Output: Intake & Output 06/27/22 06/28/22 06/29/22 06/30/22 23:59 23:59 23:59 23:59 Intake Total 2230 1000 Output Total 30 Balance 2230 970 Meds/Results Medications: Active Medications Generic Name Dose Route Start Last Admin Trade Name Freq PRN Reason Stop Dose Admin Acetaminophen 1,000 mg 06/29/22 13:43 06/30/22 05:28 Acetaminophen 500 Mg Tablet PO 1,000 mg Q6HR ELI Administration Apixaban 2.5 mg 06/30/22 09:00 Apixaban 2.5 Mg Tablet PO Q12HR ELI Artificial Tears 1 drop 06/29/22 12:47 06/29/22 12:58 Artificial Tears Ophth Soln 15 Ml Bottle EACH EYE 1 drop Q2H PRN Administration Dry Eye(s) Celecoxib 100 mg 06/30/22 09:00 Celecoxib 100 Mg Capsule PO DAILY ELI Cephalexin HCl 500 mg 06/30/22 10:00 Cephalexin 500 Mg Capsule PO Q6HR ELI Diclofenac Sodium 1 drop 06/29/22 14:00 06/30/22 05:28 Diclofenac Sodium 0.1% Ophth Soln 2.5 Ml Bottle EACH EYE 07/03/22 13:59 1 drop Q8HR ELI Administration Diphenhydramine HCl 50 mg 06/29/22 11:55 06/30/22 05:28 Diphenhydramine Hcl Inj 50 Mg/Ml Vial IV PUSH 50 mg Q4H ELI Administration Duloxetine HCl 60 mg 06/29/22 21:00 06/29/22 20:55 Duloxetine Hcl 60 Mg Capsule.Dr PO 60 mg HS ELI Administration Famotidine 20 mg 06/29/22 21:00 06/29/22 20:54 Famotidine 20 Mg Tablet PO 20 mg Q12HR ELI Administration Furosemide 40 mg 06/30/22 09:00 Furosemide 40 Mg Tablet BY MOUTH QAM ELI Vancomycin HCl 1,000 mg in 250 mls @ 150 mls/hr 06/29/22 18:00 06/30/22 05:46 Vancomycin 1,000 Mg/D5w 250 Ml IVPB 06/30/22 07:39 150 mls/hr Q12H ELI Administration Cefazolin Sodium 1 gm in 50 mls @ 100 mls/hr 06/29/22 15:00 06/29/22 23:47 Ancef 1 Gm/D5w 50 Ml Pm IVPB 06/30/22 07:29
--- NOTE | 2022-06-30 06:28 | PM.DS ---
DS: Admitting Diagnosis Discharge Date 06/10 Admitting Diagnosis right hip DJD DS: Discharge Diagnosis Discharge Diagnosis (1) Hip arthritis: Code(s): M16.10 - Unilateral primary osteoarthritis, unspecified hip Status: Acute DS: Summary Hospital Course Hospital Course: 67-year-old female who underwent right anterior total hip arthroplasty on 06/29. Underwent the procedure without complications. Postoperatively she has been afebrile vital signs are stable. Neurovascularly she is intact. She is on Eliquis for DVT prophylaxis. She is weight-bearing as tolerated. She was up walking the day of surgery with therapy and very comfortable. On postop day 1 patient was alert her dressing was dry and intact. Neurovascularly she is intact. Pain is well controlled with scheduled Tylenol as well as oxycodone 5 mg. She is on a 10 day course of Celebrex for heterotopic bone formation prophylaxis. She is on a 2 week course of Keflex due to a nasal swab that was positive for OS SA. To be discharged home on 06/30. Patient was advised to keep leg elevated at home. Patient may shower when she is comfortable. She is to put a light dressing over the hip incision and changes on a daily basis. Patient was advised any questions or concerns she is to call the office otherwise we will see her at her appointed dates. Postop day 1 patient's hemoglobin was 10.0. Chem panel was all within normal limits. Time Spent with Patient Time attestation: Total time spent providing and/or coordinating discharge services: DS: Data Data Completed and Pending Labs on day of discharge: Labs from last 24 hours 06/30/22 06/30/22 06/29/22 05:24 05:24 19:10 WBC 9.4 RBC 3.22 L Hgb 10.0 L Hct 30.4 L MCV 94.4 MCH 31.1 MCHC 32.9 RDW 14.2 Plt Count 239 MPV 9.9 Immature Gran % (Auto) 0.3 Neut % (Auto) 76.8 H Lymph % (Auto) 13.6 L Cedar % (Auto) 9.2 H Eos % (Auto) 0.0 Baso % (Auto) 0.1 L Lymph # (Auto) 1.27 Cedar # (Auto) 0.9 H Eos # (Auto) 0.0 Baso # (Auto) 0.0 Abs Immat Gran (auto) 0.03 Absolute Neuts (auto) 7.2 H Absolute Nucleated RBC 0.0 Nucleated RBC % 0.0 Sodium 132 L 131 L Potassium 4.2 4.6 Chloride 103 101 Carbon Dioxide 26 25 Anion Gap 3 L 5 L BUN 14 16 Creatinine 0.70 0.80 Estim Creat Clear Calc 73 65 Estimated GFR > 60 > 60 Glucose 131 H 174 H Calcium 8.1 L 8.5 Magnesium 2.0 Total Bilirubin 0.5 0.4 AST 24 27 ALT 18 20 Alkaline Phosphatase 69 70 Total Protein 6.0 L 6.0 L Albumin 3.4 L 3.8 Blood Type Antibody Screen 06/29/22 06/29/22 06/29/22 19:10 13:34 06:33 WBC 11.9 H RBC 3.56 L Hgb 11.4 L 11.8 L Hct 34.8 L 35.3 L MCV 97.8 MCH 32.0 MCHC 32.8 RDW 14.0 Plt Count 236 MPV 10.0 Immature Gran % (Auto) 0.4 Neut % (Auto) 90.4 H Lymph % (Auto) 4.9 L Cedar % (Auto) 4.2 Eos % (Auto) 0.0 Baso % (Auto) 0.1 L Lymph # (Auto) 0.58 L Cedar # (Auto) 0.5 Eos # (Auto) 0.0 Baso # (Auto) 0.0 Abs Immat Gran (auto) 0.05 H Absolute Neuts (auto) 10.8 H Absolute Nucleated RBC 0.0 Nucleated RBC % 0.0 Sodium Potassium Chloride Carbon Dioxide Anion Gap BUN Creatinine Estim Creat Clear Calc Estimated GFR Glucose Calcium Magnesium Total Bilirubin AST ALT Alkaline Phosphatase Total Protein Albumin Blood Type O Positive Antibody Screen Negative Discharge Plan Discharge Patient Disposition: Home, Self-Care Discharge Instructions: [facility] [address] [address] POST-OPERATIVE DISCHARGE INSTRUCTIONS ANTERIOR TOTAL HIP ARTHROPLASTY 1. Move toes/feet up and down every hour while awake. 2. Be up walking every hour while awake. 3. Use cane in hand opposite of side
--- NOTE | 2022-06-30 07:48 | PCOTNOTE ---
Attempted to see for OT treatment this AM. Patient declined stating she wants to get more rest before getting up.
--- NOTE | 2022-06-30 07:53 | WPDANESPN ---
Anes - Prog Note Post-Op Date/Time: 06/30/22 07:53 Cardiovascular status: normal Respiratory status: normal Airway patency: baseline Mental status: baseline Post-Op hydration status: normal Vital Signs: Last Vital Signs Temp 97.3 F L 06/30/22 03:28 Pulse 93 06/30/22 03:28 Resp 16 06/30/22 03:28 BP 104/47 L 06/30/22 03:28 Pulse Ox 100 06/30/22 03:28 O2 Del Method Room Air 06/29/22 20:00 O2 Flow Rate 2 06/29/22 13:25 Pain Score (VAS): 0/10 I/O: Intake & Output 06/29/22 06/29/22 06/30/22 15:59 23:59 07:59 Intake Total 900 1330 1000 Output Total 30 Balance 900 1330 970 Laboratory Tests 06/30/22 05:24 06/30/22 05:24 06/29/22 06/29/22 06/29/22 06:33 13:34 19:10 WBC 11.9 H RBC 3.56 L Hgb 11.8 L 11.4 L Hct 35.3 L 34.8 L MCV 97.8 MCH 32.0 MCHC 32.8 RDW 14.0 Plt Count 236 MPV 10.0 Immature Gran % (Auto) 0.4 Neut % (Auto) 90.4 H Lymph % (Auto) 4.9 L Candler % (Auto) 4.2 Eos % (Auto) 0.0 Baso % (Auto) 0.1 L Lymph # (Auto) 0.58 L Candler # (Auto) 0.5 Eos # (Auto) 0.0 Baso # (Auto) 0.0 Abs Immat Gran (auto) 0.05 H Absolute Neuts (auto) 10.8 H Absolute Nucleated RBC 0.0 Nucleated RBC % 0.0 Sodium Potassium Chloride Carbon Dioxide Anion Gap BUN Creatinine Estim Creat Clear Calc Estimated GFR Glucose Calcium Magnesium Total Bilirubin AST ALT Alkaline Phosphatase Total Protein Albumin Blood Type O Positive Antibody Screen Negative 06/29/22 06/30/22 06/30/22 19:10 05:24 05:24 WBC 9.4 RBC 3.22 L Hgb 10.0 L Hct 30.4 L MCV 94.4 MCH 31.1 MCHC 32.9 RDW 14.2 Plt Count 239 MPV 9.9 Immature Gran % (Auto) 0.3 Neut % (Auto) 76.8 H Lymph % (Auto) 13.6 L Candler % (Auto) 9.2 H Eos % (Auto) 0.0 Baso % (Auto) 0.1 L Lymph # (Auto) 1.27 Candler # (Auto) 0.9 H Eos # (Auto) 0.0 Baso # (Auto) 0.0 Abs Immat Gran (auto) 0.03 Absolute Neuts (auto) 7.2 H Absolute Nucleated RBC 0.0 Nucleated RBC % 0.0 Sodium 131 L 132 L Potassium 4.6 4.2 Chloride 101 103 Carbon Dioxide 25 26 Anion Gap 5 L 3 L BUN 16 14 Creatinine 0.80 0.70 Estim Creat Clear Calc 65 73 Estimated GFR > 60 > 60 Glucose 174 H 131 H Calcium 8.5 8.1 L Magnesium 2.0 Total Bilirubin 0.4 0.5 AST 27 24 ALT 20 18 Alkaline Phosphatase 70 69 Total Protein 6.0 L 6.0 L Albumin 3.8 3.4 L Blood Type Antibody Screen Post-procedural complaints: none Patient Feedback: Patient satisfied with anesthetic care.
[2022-06-30] MEDS: CELECOXIB 100 MG CAPSULE PO (10:08)
[2022-06-30] MEDS: APIXABAN 2.5 MG TABLET PO (10:08)
[2022-06-30] MEDS: FUROSEMIDE 40 MG TABLET BY MOUTH (10:08)
[2022-06-30] MEDS: CEPHALEXIN 500 MG CAPSULE PO (10:09)
[2022-06-30] MEDS: PANTOPRAZOLE 40 MG TABLET PO (10:09)
[2022-06-30] MEDS: MAGNESIUM OXIDE 400 MG TABLET PO (10:09)
[2022-06-30] MEDS: FAMOTIDINE 20 MG TABLET PO (10:10)
== END 2022-06-30 13:45 | disposition home or self-care (01) ==
LOC: ANHSURGERY 06:02 → ANH3MED 13:47
PROVIDERS: Student in an Organized Health Care Education/Training Program; PCP Internal Medicine; Visit Provider Orthopaedic Surgery
PROC: (CPT 27130; principal; 2022-06-29 07:30)
DX: M16.11 Unilateral primary osteoarthritis, right hip (principal); K58.9 Irritable bowel syndrome, unspecified; K21.9 Gastro-esophageal reflux disease without esophagitis; I10 Essential (primary) hypertension; E03.9 Hypothyroidism, unspecified; E66.9 Obesity, unspecified; Z68.33 Body mass index [BMI] 33.0-33.9, adult; Z22.321 Carrier or suspected carrier of Methicillin susceptible Staphylococcus aureus
CPT/HCPCS: 27130; 36415; 73501; 80048; 80053; 80307; 82040; 83036; 83735; 85014; 85018; 85025; 86850; 86900; 86901; 87081; 87147; 87181; 87186; 93005; 97110; 97161; 97165; 97530; 97535; 99199; A9270; C1776; J0171; J0690; J1100; J1170; J1200; J1885; J2250; J2270; J2370; J2405; J2704; J2710; J2795; J3010; J3370; J7030; J7120

== ENCOUNTER 2023-11-18 08:32 | Outpatient (CLI) | payer MEDICARE, SELFPAY ==
--- NOTE | ~2023-11-18 | MM_ITS ---
EXAMINATION: MM screening benson BI w dylon HISTORY: Screening TECHNIQUE: Craniocaudal and mediolateral oblique 3-D tomosynthesis images were obtained and synthetic 2-D images were generated. CAD analysis was submitted and interpreted. COMPARISON: 02/12/2022 BREAST PARENCHYMAL COMPOSITION: Not dense: There are scattered areas of fibroglandular density. FINDINGS: There is no evidence of suspicious mass, calcification, or architectural distortion to sugg est malignancy in either breast. There has been no suspicious interval change. IMPRESSION: 1. No mammographic evidence of malignancy. 2. Recommend routine screening mammography in one year. BI-RADS Category 1: Negative Reviewed, dictated and finalized at location B.
== END 2023-11-18 08:33 | disposition home or self-care (01) ==
PROVIDERS: PCP Internal Medicine; Visit Provider Internal Medicine
DX: Z12.31 Encounter for screening mammogram for malignant neoplasm of breast (principal)
CPT/HCPCS: 77063; 77067

== ENCOUNTER 2024-04-17 15:40 | Outpatient (CLI) | payer MEDICARE, SELFPAY ==
--- NOTE | ~2024-04-17 | XR_ITS ---
XR hip LT min 2V 04/17/2024 16:18 Indication: Left hip leg pain Procedure: 2 views left hip Comparison: No prior studies for comparison. Findings: There is mild osteoarthritis of the left hip. No fracture, subluxation or dislocation. No s ignificant soft tissue abnormality. No foreign bodies. Impression: 1: Mild osteoarthritis of the left hip. Reviewed, dictated and finalized at location B. ER BULLET CHARGING MACHINE OPERATOR Impression: 1: Mild osteoarthritis of the left hip.
--- NOTE | ~2024-04-17 | XR_ITS ---
EXAMINATION: XR lumbar spine 2-3V DATE: 04/17/2024 16:18 INDICATION: Left hip and leg pain. Fall. TECHNIQUE: 3 views of the lumbar spine were obtained. COMPARISON: None. FINDINGS: There is 5 mm anterolisthesis of L4 on L5. There are changes of anterior posterior fusion p rocedures at L4-L5 with interbody device and pedicle screws. There is a chronic compression fracture of T8. There is mildly decreased disc height at T7-T8, T8-T9, T12-L1, L1-L2, and L3-L4. There is mult ilevel severe facet joint osteoarthritis in lumbar spine. There are surgical clips in the abdomen. Th ere is a total right hip arthroplasty. IMPRESSION: 1. Mild lumbar spondylosis. 2. Anterior and posterior fusion procedures at L4-L5. Reviewed, dictated and finalized at location A. UET WAITER/WAITRESS
== END 2024-04-17 15:41 | disposition home or self-care (01) ==
LOC: CHSIMG 15:43
PROVIDERS: PCP Internal Medicine; Visit Provider Internal Medicine
DX: M54.50 Low back pain, unspecified (principal); M25.552 Pain in left hip
CPT/HCPCS: 72100; 73502

== ENCOUNTER 2024-12-15 12:59 | Outpatient (CLI) | payer MEDICARE, SELFPAY ==
--- NOTE | ~2024-12-15 | MR_ITS ---
MRI of the left hip Clinical history: Pain Technique: Coronal T1-weighted, T2-weighted, and proton-density fat-sat images, and axial T1-weighted and proton-density fat-sat images were acquired through the pelvis. Coronal T2-weighted images and c oronal, axial, and sagittal proton-density fat-sat images were acquired through the left hip. Findings: There is no fracture or avascular necrosis of the left hip. Bone marrow signals of the prox imal left femur and visual is pelvic bones are unremarkable. Right hip arthroplasty in place with ass ociated hardware/susceptibility artifact. There is mild chondromalacia of the left hip joint. No sign ificant left hip joint effusion. No left acetabular labral tear evident. Visualized musculature about the pelvis and left hip is unremarkable. There is marked fluid distentio n of the left greater trochanteric bursa, compatible with bursitis. IMPRESSION: Severe left greater trochanteric bursitis. Right hip arthroplasty. Reviewed, dictated and finalized at location .
== END 2024-12-15 13:00 | disposition home or self-care (01) ==
LOC: MICIMG 13:00
PROVIDERS: PCP Internal Medicine; Visit Provider Orthopaedic Surgery
DX: M70.62 Trochanteric bursitis, left hip (principal)
CPT/HCPCS: 73721